=== PATIENT | female | born 1970 | race Hispanic/Latino ===

== ENCOUNTER 2018-02-18 02:46 | Emergency (ER) | payer SELFPAY ==
[2018-02-18] MEDS ORDERED: HYDROCODONE/APAP 10/325 TAB ONE (03:24)
[2018-02-18] MEDS ORDERED: AMOX/K CLAV 875 MG TAB ONE (03:25)
[2018-02-18] MEDS ORDERED: TETRACAINE HCL 0.5% 2ML OPTH ONE (03:28)
--- NOTE | 2018-02-18 04:18 | EDPHYS ---
Physician Documentation [facility] Name: Becky Sheets Age: 48 yrs Sex: Female : 1970 Arrival Date: 02/18/2018 Time: 02:49 Bed 20 Private MD: ED Physician Axel Cho HPI: 02/18 03:12 This 48 yrs old Female presents to ER via Ambulatory with complaints of Ear jmm Pain. 03:17 The patient presents with pain. The complaints affect the left ear. Onset: The jmm symptoms/episode began/occurred gradually. 03:23 Associated signs and symptoms: Pertinent negatives: cough, fever, sore throat. This is jmm a 48 year old female with no chronic medical conditions that presents to the ED with left ear . 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 - Social history:: Smoking status: Patient/guardian denies using tobacco. - Ebola Screening: : Patient negative for fever greater than or equal to 101.5 degrees Fahrenheit, and additional compatible Ebola Virus Disease symptoms. ROS: 03:24 Constitutional: Negative for fever, chills, and weight loss. jmm 03:24 Neck: Negative for injury, pain, and swelling, Cardiovascular: Negative for chest pain, palpitations, and edema, Respiratory: Negative for shortness of breath, cough, wheezing, and pleuritic chest pain. 03:24 ENT: Positive for ear pain. 03:24 Neuro: Positive for headache. 03:24 All other systems are negative. Exam: 03:24 Head/Face: atraumatic. jmm 03:24 Chest/axilla: Normal chest wall appearance and motion. Cardiovascular: Regular rate and rhythm. No edema appreciated Respiratory: Normal respirations, no respiratory distress appreciated Abdomen/GI: Non distended, soft Back: Normal ROM Skin: General appearance color normal MS/ Extremity: Moves all extremities, no obvious deformities appreciated, no edema noted to the lower extremities Neuro: Awake and alert, normal gait Psych: Behavior is normal, Mood is normal, Patient is cooperative and pleasant 03:24 Constitutional: The patient appears in no acute distress, alert, awake. 03:24 ENT: TM's: erythema, that is moderate, on the left, no mastoid tenderness is appreciated. 03:24 Neck: ROM/movement: is normal, is supple. Vital Signs: 03:01 BP 127 / 81; Pulse 92; Resp 17 S; Temp 98.3(O); Pulse Ox 98% on R/A; Weight 65.77 kg jd3 (R); Height 5 ft. 2 in. (157.48 cm) (R); Pain 10/; 03:01 Body Mass Index 26.52 (65.77 kg, 157.48 cm) jd3 MDM: 03:11 Patient medically screened. [facility] 03:26 Data reviewed: vital signs, nurses notes. [facility] 03:34 Counseling: I had a detailed discussion with the patient and/or guardian regarding: the [facility] historical points, exam findings, and any diagnostic results supporting the discharge/admit diagnosis, the need for outpatient follow up, to return to the emergency department if symptoms worsen or persist or if there are any questions or concerns that arise at home. 03:38 ED course: PE findings appear consistent with OM. No mastoid tenderness if appreciated. [facility] Patient prescribed oral antibiotics and advised to follow up with ENT and otherwise given return precautions. patient understood and agrees with the plan of care. . Administered Medications: 03:25 Drug: [place] 10 mg-325 mg 1 tabs Route: PO; jd3 03:41 Follow up: Response: No adverse reaction jd3 03:25 Drug: Augmentin 875 mg Route: PO; jd3 03:41 Follow up: Response: No adverse reaction jd3 03:26 Drug: Tetracaine Solution (0.5 %) 1 application Route: Topical; Site: affected area; jd3 03:41 Follow up: Response: No adverse reaction jd3 Disposition: 05:28 Co-signature as Attending Physician, Axel Cho MD I agree with the assessment and 4 plan of care. Disposition: 02/18/18 03:35 Discharged to Home. Impression: Acute serous otitis media. - Condition is Stable. - Discharge Instructions: Otitis Media, Adult. - Prescriptions for Augmentin 875- 125 mg Oral Tablet - take 1 tablet by ORAL route every 12 hours for 10 days; 20 tablet. Ultracet 37.5- 325 mg Oral Tablet - take 1 tablet by ORAL route every 6 hours - for up to 5 days; do not exceed 8 tablets per day.; 12 tablet. - Medication Reconciliation Form, Thank You Letter, Antibiotic Education, Prescription Opioid Use form. - Follow up: Liza Stanton MD; When: 2 - 3 days; Reason: Recheck today's complaints, Continuance of care, Re-evaluation by your physician. Signatures: Gilberto Magaña PA PA jmm Davies, Jonathon, RN RN jd3 Axel Cho MD MD tw4 Corrections: (The following items were deleted from the chart) 03:42 03:35 02/18/2018 03:35 Discharged to Home. Impression: Acute serous otitis media. jd3 Condition is Stable. Forms are Medication Reconciliation Form, Thank You Letter, Antibiotic Education, Prescription Opioid Use. Follow up: Liza Stanton; When: 2 - 3 days; Reason: Recheck today's complaints, Continuance of care, Re-evaluation by your physician. gilma
--- NOTE | 2018-02-18 04:18 | ER ---
Nurse's Notes [facility] Name: Becky Sheets Age: 48 yrs Sex: Female : 1970 Arrival Date: 02/18/2018 Time: 02:49 Bed 20 Private MD: Diagnosis: Acute serous otitis media Presentation: 02/18 02:59 Presenting complaint: states: "She has had an ear ache for 4 days now and today jd3 it has gotten worse.". Transition of care: patient was not received from another setting of care. Onset of symptoms was February 14, 2018. Risk Assessment: Do you want to hurt yourself or someone else? Patient reports no desire to harm self or others. Initial Sepsis Screen: Does the patient meet any 2 criteria? No. Patient's initial sepsis screen is negative. Does the patient have a suspected source of infection? No. Patient's initial sepsis screen is negative. Care prior to arrival: None. 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 - Social history:: Smoking status: Patient/guardian denies using tobacco. - Ebola Screening: : Patient negative for fever greater than or equal to 101.5 degrees Fahrenheit, and additional compatible Ebola Virus Disease symptoms. Screenin:05 Abuse screen: Denies threats or abuse. Nutritional screening: No deficits noted. jd3 Tuberculosis screening: No symptoms or risk factors identified. Fall Risk Ambulatory Aid- None/Bed Rest/Nurse Assist (0 pts). Gait- Normal/Bed Rest/Wheelchair (0 pts) Mental Status- Oriented to own ability (0 pts). Total Petersen Fall Scale indicates No Risk (0-24 pts). Assessment: 03:02 General: Appears uncomfortable, Behavior is calm, cooperative, appropriate for age. jd3 Pain: Complains of pain in left ear Quality of pain is described as sharp, Is continuous. Neuro: Level of Consciousness is awake, alert, obeys commands, Oriented to person, place, time, situation. Cardiovascular: Capillary refill < 3 seconds Patient's skin is warm and dry. Respiratory: Airway is patent Respiratory effort is even, unlabored, Respiratory pattern is regular, symmetrical. GI: No signs and/or symptoms were reported involving the gastrointestinal system. : No signs and/or symptoms were reported regarding the genitourinary system. EENT: Ear canal redness noted. Reports pain in left ear. Derm: Skin is intact, Skin is dry, Skin is normal, Skin temperature is warm. Musculoskeletal: Circulation, motion, and sensation intact. Range of motion: intact in all extremities. 03:40 Reassessment: Patient appears in no apparent distress at this time. Patient and/or jd3 family updated on plan of care and expected duration. Pain level reassessed. Patient is alert, oriented x 3, equal unlabored respirations, skin warm/dry/pink. Vital Signs: 03:01 BP 127 / 81; Pulse 92; Resp 17 S; Temp 98.3(O); Pulse Ox 98% on R/A; Weight 65.77 kg j (R); Height 5 ft. 2 in. (157.48 cm) (R); Pain 10/10; 03:01 Body Mass Index 26.52 (65.77 kg, 157.48 cm) [facility] ED Course: 02:49 Patient arrived in ED. am2 02:59 Benny James, RN is Primary Nurse. [facility] 03:00 Triage completed. [facility] 03:02 Gilberto Magaña PA is PHCP. [facility] 03:02 Axel Cho MD is Attending Physician. [facility] 03:02 Arm band placed on. jd3 03:05 Patient has correct armband on for positive identification. Bed in low position. Call [facility] light in reach. Side rails up X 1. Adult w/ patient. 03:34 Liza Stanton MD is Referral Physician. [facility] 03:40 No provider procedures requiring assistance completed. Patient did not have IV access j during this emergency room visit. Administered Medications: 03:25 Drug: [place] 10 mg-325 mg 1 tabs Route: PO; jd3 03:41 Follow up: Response: No adverse reaction jd3 03:25 Drug: Augmentin 875 mg Route: PO; jd3 03:41 Follow up: Response: No adverse reaction jd3 03:26 Drug: Tetracaine Solution (0.5 %) 1 application Route: Topical; Site: affected area; jd3 03:41 Follow up: Response: No adverse reaction jd3 Outcome: 03:35 Discharge ordered by . gilma 03:40 Discharged to home ambulatory, with family. jd3 03:40 Condition: stable 03:40 Discharge instructions given to patient, family, Instructed on discharge instructions, follow up and referral plans. medication usage, Demonstrated understanding of instructions, follow-up care, medications, Prescriptions given X 2. 03:42 Patient left the ED. jd3 Signatures: Gilberto Magaña PA PA jmm Moreno, Amanda am2 Davies, Jonathon RN RN jd3
== END 2018-02-18 03:42 | disposition home or self-care (01) ==
LOC: ER 02:46
DX: H65.00 Acute serous otitis media, unspecified ear (principal)
CPT/HCPCS: 99283